=== PATIENT | female | born 1940 | race Caucasian/White ===

== ENCOUNTER → 2016-08-13 | Outpatient (CLI) | payer MEDICARE, OTHER ==
--- NOTE | 2016-08-13 15:05 | REPMRS ---
Patient History The patient states she had a clinical breast exam in 08/13 Patient is postmenopausal. Family history of colorectal cancer in father at age 50 or over and pancreatic cancer in sister at age 50 or over. 2 benign excisional biopsies of the right breast, 1968. Taking unspecified hormones for 6 years. Digital Woman Screen Mammo: August 13, 2016 - Exam #: [id number] Bilateral CC and MLO view(s) were taken. Technologist: Essie Paiz, Technologist Prior study comparison: July 21, 2015, digital woman screen mammo performed at [facility]. July 18, 2014, digital woman screen mammo performed at [facility]. July 17, 2013, digital woman screen mammo performed at [facility]. FINDINGS: There are scattered fibroglandular densities. There has been no change in the appearance of the mammogram from the prior studies. There is a mild amount of scattered fibroglandular density which is fairly symmetric. There is no interval development of dominant mass, architectural distortion, or clustered microcalcification suggestive of malignancy. ASSESSMENT: BI-RADS/ACR category 1 mammogram. Negative. Recommendation Routine screening mammogram in 1 year (for women over age 40). This mammogram was interpreted with the aid of an FDA-approved computer-aided dectection system. Electronically Signed By: Samuel Umana MD 08/13/16 [id number]
== END ==
LOC: M WHC 13:00
PROVIDERS: ATTEND Family Medicine
DX: Z12.31 Encounter for screening mammogram for malignant neoplasm of breast (principal); Z78.0 Asymptomatic menopausal state; Z92.89 Personal history of other medical treatment; Z80.0 Family history of malignant neoplasm of digestive organs
CPT/HCPCS: G0101; G0202

== ENCOUNTER → 2016-08-30 | Outpatient (CLI) | payer MEDICARE, OTHER ==
--- NOTE | 2016-09-01 13:37 | DEXA ---
AP SPINE L1 - L4 1.109 -0.7 1.1 LT FEMUR TOTAL 0.907 -0.8 0.9 RT FEMUR TOTAL 0.959 -0.4 1.3 TOTAL BODY TOTAL OTHER DUAL FEMUR FRAX* ASSESSMENT Risk factors: History of fracture as an adult. 10 year probability of fracture Major osteoporotic fracture 14.1 % Hip fracture 1.9 % COMMENTS: Normal bone densitometry of the spine. Normal bone densitometry of the right hip. There is low bone density of the left hip. The density of the spine has increased 7.4% since the initial exam on 2000. The spine density has decreased 4.9% since the most recent exam on . The density of the left hip has decreased 9.8% since the initial exam on 2000. The density of the left hip has decreased 9.4% since the most recent exam on 06/2009. The density of the right hip has decreased 9.5% since the initial exam on 2000. The density of the right hip has decreased 5.6% since the most recent exam on . FOLLOW-UP: Recommendation for the next bone density exam: 2 years. TOMMIE
== END ==
LOC: M WHC 10:02
PROVIDERS: ATTEND Family Medicine
DX: Z13.820 Encounter for screening for osteoporosis (principal); M85.9 Disorder of bone density and structure, unspecified; M81.0 Age-related osteoporosis without current pathological fracture

== ENCOUNTER → 2017-03-22 | Outpatient (REF) | payer MEDICARE, OTHER ==
[2017-03-22 13:00] LABS: ALBUMIN 3.9 GM/DL (3.2-5.2); ALBUMIN/GLOBULIN RATIO 1.44 (1.00-1.93); ALKALINE PHOSPHATASE 85 U/L (45-117); ALT/SGPT 33 U/L (12-78); ANION GAP 10 MEQ/L (8-16); AST/SGOT 29 U/L (15-37); BILIRUBIN,TOTAL 0.6 MG/DL (0.2-1.0); BLOOD UREA NITROGEN 24 MG/DL (7-18); CALCIUM LEVEL 8.8 MG/DL (8.8-10.2); CARBON DIOXIDE LEVEL 28 MEQ/L (21-32); CHLORIDE LEVEL 102 MEQ/L (98-107); CREATININE FOR GFR 0.87 MG/DL (0.55-1.02); FREE T4 1.06 NG/DL (0.76-1.46); GLOMERULAR FILTRATION RATE > 60.0 (>39); GLUCOSE, FASTING 89 MG/DL (83-110); POTASSIUM SERUM 4.3 MEQ/L (3.5-5.1); SODIUM LEVEL 140 MEQ/L (136-145); TOTAL PROTEIN 6.6 GM/DL (6.4-8.2)
[2017-03-24 00:07] LABS: Lyme Disease IgG/IgM Antibodie <0.91 ISR (0.00-0.90); Lyme Disease IgM Ab Quantitati <0.80 index (0.00-0.79)
== END ==
LOC: M SFHCCLAY 08:17
PROVIDERS: ATTEND Family Medicine
DX: Z20.9 Contact with and (suspected) exposure to unspecified communicable disease (principal); R41.3 Other amnesia; R11.0 Nausea; G44.329 Chronic post-traumatic headache, not intractable; Z23 Encounter for immunization; Z11.59 Encounter for screening for other viral diseases
CPT/HCPCS: 80053; 84439; 84443; 86617; 86780; 90662; G0008; G0463

== ENCOUNTER → 2017-12-08 | Outpatient (CLI) | payer MEDICARE, OTHER | LOC: M CLY 14:46 | DX: M16.11 Unilateral primary osteoarthritis, right hip (principal); M25.551 Pain in right hip | CPT/HCPCS: 72170 ==

== ENCOUNTER → 2018-07-25 | Outpatient (REF) | payer MEDICARE, OTHER ==
[2018-07-25 11:56] LABS: BASO % 1.1 % (0.0-1.0); EOS # 0.3 10^3/uL (0.0-0.50); EOS % 8.1 % (0.0-3.0); HEMATOCRIT 41.1 % (36.0-47.0); HEMOGLOBIN 13.3 g/dl (12.0-15.5); LYMPH % 27.9 % (24.0-44.0); MEAN CORPUSCULAR HEMOGLOBIN 30.6 pg (27.0-33.0); MEAN CORPUSCULAR HGB CONC 32.4 g/dl (32.0-36.5); MEAN CORPUSCULAR VOLUME 94.5 fl (80.0-96.0); MONO # 0.6 10^3/uL (0.0-0.8); MONO % 14.9 % (0.0-5.0); NEUTROPHILS # 1.8 10^3/uL (1.8-7.7); NEUTROPHILS % 47.7 % (36.0-66.0); PLATELET COUNT, AUTOMATED 247 10^3/uL (150-450); RED BLOOD COUNT 4.35 10^6/uL (4.00-5.40); WHITE BLOOD COUNT 3.7 10^3/uL (4.0-10.0)
[2018-07-25 12:12] LABS: DRVV SCREEN 33.4 SEC
[2018-07-25 12:38] LABS: ERYTHROCYTE SEDIMENTATION RATE 4 mm/hr (0-30)
[2018-07-25 12:40] LABS: PTT LUPUS TYPE ANTICOAG SCREEN 0.8 (0-1.2)
[2018-07-25 13:09] LABS: ALT/SGPT 37 U/L (12-78); BILIRUBIN,TOTAL 0.7 MG/DL (0.2-1.0); BLOOD UREA NITROGEN 25 MG/DL (7-18); CALCIUM LEVEL 8.5 MG/DL (8.8-10.2); CARBON DIOXIDE LEVEL 28 MEQ/L (21-32); CHLORIDE LEVEL 105 MEQ/L (98-107); CREATININE FOR GFR 0.86 MG/DL (0.55-1.30); FOLATE 19.7 NG/ML; GLOMERULAR FILTRATION RATE > 60.0 (>39); GLUCOSE, FASTING 77 MG/DL (70-100); POTASSIUM SERUM 4.2 MEQ/L (3.5-5.1); RHEUMATOID FACTOR QUANT < 10.0 IU/ML (<15.0); SODIUM LEVEL 141 MEQ/L (136-145); TOTAL 25(OH) VITAMIN D 26.1 NG/ML (30.0-100.0); TOTAL PROTEIN 6.6 GM/DL (6.4-8.2); VITAMIN B12 LEVEL 621 PG/ML
[2018-07-25 15:38] LABS: HEMOGLOBIN A1c 5.7 %
[2018-07-27 14:37] LABS: ALBUMIN 4.43 GM/DL (3.29-5.55); ALBUMIN % 67.1 % (55.8-66.1); ALPHA-1-GLOBULIN % 4.5 % (2.9-4.9); ALPHA-2-GLOBULINS 0.57 GM/DL (0.42-0.99); ALPHA-2-GLOBULINS % 8.6 % (7.1-11.8); BETA-1-GLOBULINS 0.38 GM/DL (0.28-0.60); BETA-1-GLOBULINS % 5.8 % (4.7-7.2); BETA-2-GLOBULINS 0.32 GM/DL (0.19-0.55); BETA-2-GLOBULINS % 4.9 % (3.2-6.5); GAMMA GLOBULIN % 9.1 % (11.1-18.8)
== END ==
LOC: M LABDRAWC 11:06
PROVIDERS: ATTEND Psychiatry & Neurology Neurology
DX: R41.841 Cognitive communication deficit (principal); R47.01 Aphasia

== ENCOUNTER → 2018-09-28 | Outpatient (REF) | payer MEDICARE, OTHER ==
[2018-10-01 00:06] LABS: Lyme Disease IgG/IgM Antibodie <0.91 ISR (0.00-0.90); Lyme Disease IgM Ab Quantitati <0.80 index (0.00-0.79)
== END ==
LOC: M SFHCCLAY 08:41
PROVIDERS: ATTEND Family Medicine
DX: M79.10 Myalgia, unspecified site (principal)

== ENCOUNTER → 2018-11-15 | Outpatient (REF) | payer MEDICARE, OTHER ==
[2018-11-15 17:24] LABS: ALBUMIN 4.2 GM/DL (3.2-5.2); ALT/SGPT 33 U/L (12-78); BILIRUBIN,TOTAL 0.7 MG/DL (0.2-1.0); BLOOD UREA NITROGEN 20 MG/DL (7-18); CALCIUM LEVEL 9.1 MG/DL (8.8-10.2); CARBON DIOXIDE LEVEL 29 MEQ/L (21-32); CHLORIDE LEVEL 105 MEQ/L (98-107); CHOLESTEROL LEVEL 242 MG/DL (<200); CHOLESTEROL RISK RATIO 2.469 (<5); CREATININE FOR GFR 0.86 MG/DL (0.55-1.30); GLOMERULAR FILTRATION RATE > 60.0 (>39); GLUCOSE, FASTING 89 MG/DL (70-100); HDL CHOLESTEROL 98 MG/DL (>40); LDL CHOLESTEROL 127 MG/DL (<100); NON-HDL-C 144 MG/DL; POTASSIUM SERUM 4.4 MEQ/L (3.5-5.1); SODIUM LEVEL 141 MEQ/L (136-145); TOTAL PROTEIN 7.1 GM/DL (6.4-8.2); TRIGLYCERIDES LEVEL 85 MG/DL (<150)
[2018-11-15 17:36] LABS: HEMATOCRIT 43.2 % (36.0-47.0); HEMOGLOBIN 13.8 g/dl (12.0-15.5); MEAN CORPUSCULAR HEMOGLOBIN 30.4 pg (27.0-33.0); MEAN CORPUSCULAR HGB CONC 31.9 g/dl (32.0-36.5); MEAN CORPUSCULAR VOLUME 95.2 fl (80.0-96.0); PLATELET COUNT, AUTOMATED 262 10^3/uL (150-450); RED BLOOD COUNT 4.54 10^6/uL (4.00-5.40); WHITE BLOOD COUNT 4.3 10^3/uL (4.0-10.0)
[2018-11-15 18:14] LABS: ERYTHROCYTE SEDIMENTATION RATE 3 mm/hr (0-30)
== END ==
LOC: M SFHCCLAY 10:16
PROVIDERS: ATTEND Family Medicine
DX: I63.81 Other cerebral infarction due to occlusion or stenosis of small artery (principal); M50.30 Other cervical disc degeneration, unspecified cervical region; E78.00 Pure hypercholesterolemia, unspecified
CPT/HCPCS: 80053; 80061; 84443; 85027; 85652; G0463

== ENCOUNTER → 2019-07-09 | Outpatient (CLI) | payer MEDICARE, OTHER ==
[~2019-07-09] MED LIST: DULO1CAP5 PO
--- NOTE | 2019-07-09 12:03 | REPMRS ---
Patient History The patient states she has not had a clinical breast exam in over a year. Family history of colorectal cancer at age 50 or over in father, pancreatic cancer at age 50 or over in sister. 2 benign excisional biopsies of the right breast, 1968. Took unspecified hormones for 6 years. Digital Woman Screen Mammo: July 09, 2019 - Exam #: [id number] Bilateral CC and MLO view(s) were taken. Technologist: Yuin Vázquez, Technologist Prior study comparison: September 09, 2017, digital woman screen mammo performed at [facility]. August 13, 2016, digital woman screen mammo performed at [facility]. July 21, 2015, digital woman screen mammo performed at [facility]. FINDINGS: There are scattered fibroglandular densities. There has been no change in the appearance of the mammogram from the prior studies. There is a mild amount of scattered fibroglandular density which is fairly symmetric. There is no interval development of dominant mass, architectural distortion, or grouped microcalcification suggestive of malignancy. 3-D tomosynthesis shows no additional findings. Assessment: BI-RADS/ACR category 1 mammogram. Negative Mammogram. Recommendation Routine screening mammogram of both breasts in 1 year (for women over age 40). This patient's Lifetime Breast Cancer Risk is estimated at 3.0 %. This mammogram was interpreted with the aid of an FDA-approved computer-aided dectection system. Electronically Signed By: Samuel Umana MD 07/09/19 1353
== END ==
LOC: M WHC 09:45
PROVIDERS: ATTEND Family Medicine
DX: Z12.31 Encounter for screening mammogram for malignant neoplasm of breast (principal); M16.0 Bilateral primary osteoarthritis of hip; Z80.0 Family history of malignant neoplasm of digestive organs; Z86.018 Personal history of other benign neoplasm; Z92.29 Personal history of other drug therapy

== ENCOUNTER 2019-10-11 08:09 | Observation (INO) | payer MEDICARE, OTHER ==
[2019-10-11] MEDS ORDERED: ATOR40TA75 PO (08:23)
[2019-10-11] MEDS ORDERED: ASPIRIN 325 MG TAB PO ONE (08:45)
[2019-10-11] MEDS ORDERED: METOCLOPRAMIDE INJ 10MG/2ML VIAL (J2765 PER 1) IV ONE (08:45)
[2019-10-11 08:59] LABS: BASO # 0.1 10^3/uL (0.0-0.2); BASO % 1.7 % (0.0-1.0); EOS # 0.3 10^3/uL (0.0-0.5); EOS % 8.3 % (0.0-3.0); HEMATOCRIT 40.4 % (36.0-47.0); LYMPH % 29.4 % (24.0-44.0); MEAN CORPUSCULAR HEMOGLOBIN 30.7 pg (27.0-33.0); MEAN CORPUSCULAR HGB CONC 32.2 g/dl (32.0-36.5); MEAN CORPUSCULAR VOLUME 95.5 fl (80.0-96.0); MONO # 0.5 10^3/uL (0.0-0.8); MONO % 15.4 % (0.0-5.0); NEUTROPHILS # 1.6 10^3/uL (1.5-8.5); NEUTROPHILS % 44.9 % (36.0-66.0); PLATELET COUNT, AUTOMATED 211 10^3/uL (150-450); RED BLOOD COUNT 4.23 10^6/uL (4.00-5.40); WHITE BLOOD COUNT 3.5 10^3/uL (4.0-10.0)
[2019-10-11] MEDS ORDERED: ACET-683 PO (09:03)
[2019-10-11] MEDS ORDERED: ASPI81TA85 PO (09:03)
[2019-10-11 09:15] LABS: INR 1.11
[2019-10-11 09:27] LABS: ALBUMIN 3.4 GM/DL (3.2-5.2); ALT/SGPT 49 U/L (12-78); BILIRUBIN,TOTAL 0.6 MG/DL (0.2-1.0); BLOOD UREA NITROGEN 26 MG/DL (7-18); CALCIUM LEVEL 8.2 MG/DL (8.8-10.2); CARBON DIOXIDE LEVEL 30 MEQ/L (21-32); CHLORIDE LEVEL 110 MEQ/L (98-107); CK-MB VALUE MASS 4.1 NG/ML (<3.6); CPK CREATINE PHOSPHOKINASE 282 U/L (26-192); CREATININE FOR GFR 0.84 MG/DL (0.55-1.30); GLOMERULAR FILTRATION RATE > 60.0 (>39); GLUCOSE, FASTING 116 MG/DL (70-100); MB/CK RELATIVE INDEX 1.45 (< OR =4); POTASSIUM SERUM 3.9 MEQ/L (3.5-5.1); SODIUM LEVEL 143 MEQ/L (136-145); TOTAL PROTEIN 6.2 GM/DL (6.4-8.2); TROPONIN I < 0.02 NG/ML (< 0.10)
--- NOTE | 2019-10-11 09:59 | REP ---
CHEST, SINGLE VIEW: There is no evidence of acute infiltrate. No pleural effusion is seen. The heart is normal in size. The mediastinal silhouette is unremarkable. The visualized osseous structures are intact. IMPRESSION: No acute pulmonary disease. Electronically Signed by Jay Becker MD 10/11/2019 12:55 P
--- NOTE | 2019-10-11 09:59 | REP ---
CT BRAIN WITHOUT CONTRAST: HISTORY: CVA. Comparison head CT study June 13, 2019. CT FINDINGS: Preliminary digital egg caser radiograph is unremarkable. Bone window settings demonstrate an intact bony calvarium. Visualized paranasal sinuses are clear. Moderate vascular calcification is noted at the skull base. There is mild generalized atrophy. There is no evidence of intracranial hemorrhage. No extra-axial fluid collection, infarction, mass or midline shift is appreciated. There is some mild punctate calcification in the basal ganglia unchanged. IMPRESSION: Vascular calcification and mild diffuse atrophy. No acute intracranial abnormality. Electronically Signed by Elmo Umana MD 10/11/2019 10:13 A
[2019-10-11] MEDS ORDERED: MOM 30ML SUSPENSION UDC PO PRN (11:30)
[2019-10-11] MEDS ORDERED: ACETAMINOPHEN TAB 650MG DOSE (2X325MG) PO PRN (11:30)
[2019-10-11 12:02] VITALS: BP 136/97
--- NOTE | 2019-10-11 13:53 | HPEPDOC ---
[facility] Medical History & Physical Date of Admission October 11, 2019 Date of Service: October 11, 2019 Primary Care Physician: Trace Santiago MD Attending Physician: CHRISTOPH AMATO MD History and Physical CHIEF COMPLAINT: left sided weakness HISTORY OF PRESENT ILLNESS: Fauzia Martinez is a 79 year old female who presented to the emergency room from this morning with left-sided weakness. She states she felt normal last night when she went to bed at 11 PM. When she woke up this morning, around 6:00 AM, she felt complete weakness of her right upper and lower extremity. She states she was unable to walk due to the weakness. She then experienced nausea and was dry heaving her bathroom, but this denies any vomit coming up. She states. EMS was called and brought her to the emergency room. She states her weakness persisted until sometime after she arrived in the emergency room. At the time of my interview with the patient, her symptoms have resolved. She does have a history of a stroke seen on MRI in the past, but she denies ever having any symptoms of a stroke or TIA. She does have a history of difficulty with word finding, which began about a year ago. She states this was progressive in nature and has been stable over the past 6 months. She has been following with neurology for this. She states it is worse when she is under stress. She does not feel that her word finding is any worse today than normally, although she is feeling somewhat stressed. PAST MEDICAL HISTORY: 1. Migraines 2. Osteoarthritis 3. Stroke seen on MRI 4. Cataracts 4. Hyperlipidemia PAST SURGICAL HISTORY: 1. Tonsillectomy 2. Breast fibroadenoma excision. 3. Right thumb surgery. 4. Multiple bilateral foot surgeries 5. Cataract surgery 6. Hysterectomy SOCIAL HISTORY: Former smoker quit 1960s, 1 glass of wine several days a week. Lives at home with disabled and dog. FAMILY HISTORY: Father of bladder/colon cancer. Mother , had heart disease. ALLERGIES: Please see below. REVIEW OF SYSTEMS: CONSTITUTIONAL: Denies fevers, chills, night sweats, fatigue, unexpected change in weight. HEENT: Denies change in vision, change in hearing. CARDIOVASCULAR: Denies chest pain, palpitations, shortness of breath, lightheadedness. RESPIRATORY: Denies dyspnea, cough, wheezing. GASTROINTESTINAL: Positive per HPI. Denies abdominal pain, diarrhea, constipation, blood in stool. GENITOURINARY: Denies dysuria, urinary frequency, urinary urgency. SKIN: Denies rash, lesions. MUSCULOSKELETAL: Endorses chronic joint pain, denies new or changing joint pains. NEUROLOGICAL: Positive per HPI. Denies headache, dizziness. PSYCHIATRIC: Denies change in mood. HOME MEDICATIONS: Please see below. PHYSICAL EXAMINATION: VITAL SIGNS: See below GENERAL: Alert, comfortable, in no acute distress HEENT: Normocephalic, atraumatic, PERRLA, EOMI, sclerae anicteric, moist mucous membranes NECK: Supple, trachea midline, no lymphadenopathy, no JVD CARDIOVASCULAR: Regular rate and rhythm, normal S1 and S2. No murmurs, rubs, or gallops RESPIRATORY: Clear to auscultation bilaterally with equal air entry bilaterally. No wheezing, rhonchi, or rales. ABDOMEN: Soft, nontender, nondistended, bowel sounds present, no masses or hepatosplenomegaly appreciated EXTREMITIES: No cyanosis or edema. Pulses 2+/4 in bilateral upper and lower extremities SKIN: [place], warm, dry NEUROLOGIC: Alert and oriented 3 to person, place and time. Cranial nerves 2-12 grossly intact. No focal deficits appreciated PSYCHIATRIC: Mood and affect appropriate LABORATORY DATA: See below. IMAGING: -Head CT 10/11/2019: Vascular calcification and mild diffuse atrophy. No acute intracranial abnormality. -CXR 10/11/2019: No acute pulmonary disease. MICROBIOLOGY: Please see below. ASSESSMENT: 79 year old female who presented with left-sided weakness admitted for TIA work up and stroke rule out. PLAN: 1. TIA vs stroke - CT head negative. Symptoms resolved. - chronic difficulty with word finding, currently at baseline per patient - ordered MRI brain, MRA head and neck, telemetry - PT/OT/swallow eval - Aspirin 325 mg daily, continue home atorvastatin, recheck lipid panel 2. Hyperlipidemia - continue home statin 3. Osteoarthritis - tylenol prn DVT prophylaxis: sc heparin GI prophylaxis: not currently indicated Disposition: admitted for observation, pending further workup Attending attestation: I evaluated and examined the patient in person; I discussed the care with Resident in detail and agree with the plan above. Vital Signs Vital Signs Date Time Temp Pulse Resp B/P (MAP) Pulse Ox O2 Delivery O2 Flow Rate FiO2 10/11/19 12:02 96.3 63 17 136/97 (110) 98 Room Air Laboratory Data Labs 24H Laboratory Tests 2 10/11/19 08:47: Immature Granulocyte % (Auto) 0.3, Neutrophils (%) (Auto) 44.9, Lymphocytes (%) (Auto) 29.4, Monocytes (%) (Auto) 15.4H, Eosinophils (%) (Auto) 8.3H, Basophils (%) (Auto) 1.7H, Neutrophils # (Auto) 1.6, Lymphocytes # (Auto) 1.0L, Monocytes # (Auto) 0.5, Eosinophils # (Auto) 0.3, Basophils # (Auto) 0.1, Nucleated Red Blood Cells % (auto) 0.0, Prothrombin Time 14.0, Prothromb Time International Ratio 1.11, Activated Partial Thromboplast Time 26.0, Anion Gap 3L, Glomerular Filtration Rate > 60.0, Calcium Level 8.2L, Total Bilirubin 0.6, Aspartate Amino Transf (AST/SGOT) 37, Alanine Aminotransferase (ALT/SGPT) 49, Alkaline Phosphatase 71, Total Creatine Kinase 282H, Creatine Kinase MB 4.1H, Creatine Kinase MB Relative Index 1.45, Troponin I < 0.02, Total Protein 6.2L, Albumin 3.4, Albumin/Globulin Ratio 1.21 CBC/BMP Laboratory Tests 10/11/19 08:47 Home Medications Scheduled Acetaminophen (Acetaminophen) 500 Mg Tablet, 1,000 MG PO DAILY Aspirin (Aspirin) 325 Mg Tablet, 325 MG PO DAILY Atorvastatin Calcium (Atorvastatin Calcium) 40 Mg Tablet, 40 MG PO QPM Allergies Coded Allergies: propoxyphene (Verified Allergy, Unknown, 06/13/19) codeine (Verified Adverse Reaction, Unknown, GI UPSET, 10/11/19) hydrocodone (Verified Adverse Reaction, Unknown, GI UPSET, 10/11/19) tramadol (Verified Adverse Reaction, Unknown, GI UPSET, 10/11/19) A-FIB/CHADSVASC A-FIB History Current/History of A-Fib/PAF?: ZI Ken D.O. October 11, 2019 13:53 CHRISTOPH AMATO MD October 14, 2019 19:35
[2019-10-11 14:00] VITALS: BP 112/62
[2019-10-11] MEDS: HEPARIN SOD (PORCINE) 5000UNITS/ML VIAL (J1644 PER 1000UNITS) SC SCH ×2 (15:36→20:56)
--- NOTE | 2019-10-11 16:45 | REP ---
MR angiography the brain without contrast: History: TIA. Technique: 3-D [id number] MR angiography of the brain is acquired in the usual fashion and maximal intensity projection images were generated in rotational format about the vertical and horizontal axes. In addition, source axial T1-weighted images are viewed in cine mode. MR angiographic findings: The distal vertebral artery confluence appears to be below the bottom of the imaging field of view. It may be that the right distal vertebral artery terminates in the right italic. Left distal vertebral and basilar artery are unremarkable. Basilar artery is a little tortuous but widely patent. The posterior cerebral and superior cerebellar vessels are normal and symmetric. The distal internal carotid arteries are unremarkable. Anterior and middle cerebral arteries appear intact. There is no visible yan aneurysm or arteriovenous malformation. Impression: Unremarkable MR angiography the brain. Electronically Signed by Elmo Uamna MD 10/11/2019 04:36 P
--- NOTE | 2019-10-11 16:51 | REP ---
MR angiography of the carotids without contrast: History: Slurred speech, weakness, confusion. TIA. Findings: The thoracic aorta somewhat tortuous and mildly ectatic. Great vessels are unremarkable. The common carotid arteries are tortuous, particularly the left. There widely patent. Vertebral arteries are patent. The left is dominant. There is no evidence of significant atherosclerotic plaquing in the carotid bifurcations were in either proximal internal carotid artery. There is no evidence of significant narrowing. Impression: Vessel tortuosity seen. No evidence of ICA or vertebral artery narrowing or occlusion. Electronically Signed by Elmo Umana MD 10/11/2019 04:42 P
--- NOTE | 2019-10-11 17:04 | REP ---
MRI BRAIN WITHOUT IV CONTRAST: HISTORY: TIA. Confusion, slurred speech, weakness. COMPARISON: Head CT study, October 11, 2019. TECHNIQUE: Axial and sagittal imaging planes are utilized for T1- and T2-weighted scans. Sequences include spin-echo, fast spin echo, FLAIR, and diffusion weighted sequences. MRI FINDINGS: There is no MR evidence of significant paranasal sinus disease. No intraorbital abnormality is seen. No bony calvarial defect is appreciated. Craniocervical junction and upper cervical cord are unremarkable. There is mild generalized volume loss. There are foci of T2 hyperintensity in the periventricular and subcortical white matter of the supratentorial brain consistent with mild small vessel changes. On diffusion-weighted scans, there is a focus of restricted diffusion in the left cerebellar hemisphere consistent with an acute lacunar infarction. There is subtle low T1 and high T2 signal intensity here on accompanying spin-echo and FLAIR images. No other area of restricted diffusion is appreciated. There is no evidence of intracranial hemorrhage. The exam is otherwise unremarkable. IMPRESSION: Small focus of restricted diffusion in the left cerebellar hemisphere consistent with an acute lacunar infarct in the left cerebellum. No evidence of hemorrhage. Electronically Signed by Elmo Umana MD 10/12/2019 08:35 A
[2019-10-11] MEDS ORDERED: ATORVASTATIN 20 MG TAB PO SCH (21:00)
[2019-10-11 22:00] VITALS: BP 109/59
--- NOTE | 2019-10-11 22:14 | ECGEPIP ---
[facility] - ED Test Date: 2019-10-11 Pat Name: JOSE SOUTH Department: Room: - Gender: Female Assistant Hvac Mechanic: dilma : 1940 Requested By: LAURIE ZARATE Order Number: [id number] Reading MD: Bigg Norton Measurements Intervals [place] Rate: 47 P: 51 WV: 210 QRS: 19 QRSD: 84 T: 11 QT: 484 QTc: 428 Interpretive Statements SINUS BRADYCARDIA WITH FIRST DEGREE AV BLOCK LOW QRS VOLTAGE IN PRECORDIAL LEADS SIMILAR TO 06/13/19 Electronically Signed on 10-11-2019 22:14:24 EDT by Bigg Norton
[2019-10-12] MEDS: HEPARIN SOD (PORCINE) 5000UNITS/ML VIAL (J1644 PER 1000UNITS) SC SCH ×2 (05:15→15:28)
[2019-10-12 06:00] VITALS: BP 109/60
[2019-10-12] MEDS ORDERED: ASPIRIN 325 MG TAB PO ONE (06:00)
[2019-10-12 07:07] LABS: BLOOD UREA NITROGEN 22 MG/DL (7-18); CALCIUM LEVEL 8.2 MG/DL (8.8-10.2); CARBON DIOXIDE LEVEL 29 MEQ/L (21-32); CHLORIDE LEVEL 110 MEQ/L (98-107); CHOLESTEROL LEVEL 150 MG/DL (<200); CHOLESTEROL RISK RATIO 1.829 (<5); GLOMERULAR FILTRATION RATE > 60.0 (>39); GLUCOSE, FASTING 94 MG/DL (70-100); HDL CHOLESTEROL 82 MG/DL (>40); LDL CHOLESTEROL 54 MG/DL (<100); NON-HDL-C 68 MG/DL; SODIUM LEVEL 145 MEQ/L (136-145); TRIGLYCERIDES LEVEL 70 MG/DL (<150)
[2019-10-12] MEDS ORDERED: ASPI-1 PO (10:13)
[2019-10-12 10:30] VITALS: BP_SYST 118; BP_SYST 123; BP_DIAS 53; BP_DIAS 63; BP_DIAS 65
--- NOTE | 2019-10-12 11:28 | DS.PDOC ---
Discharge Summary General Date of Admission October 11, 2019 at 08:10 Date of Discharge 10/12/2019 Primary Care Physician: Trace Santiago MD Attending Physician: CHRISTOPH AMATO MD Discharge Summary PROCEDURES PERFORMED DURING STAY: None. ADMITTING DIAGNOSES: 1. TIA vs stroke 2. Hyperlipidemia 3. Osteoarthritis DISCHARGE DIAGNOSES: 1. Acute ischemic stroke left cerebellum 2. Hyperlipidemia 3. Osteoarthritis COMPLICATIONS/CHIEF COMPLAINT: Transient Ischemic Attack. HISTORY OF PRESENT ILLNESS: Fauzia Martinez is a 79 year old female who presented to the emergency room from this morning with left-sided weakness. She states she felt normal last night when she went to bed at 11 PM. When she woke up this morning, around 6:00 AM, she felt complete weakness of her right upper and lower extremity. She states she was unable to walk due to the weakness. She then experienced nausea and was dry heaving her bathroom, but this denies any vomit coming up. She states. EMS was called and brought her to the emergency room. She states her weakness persisted until sometime after she arrived in the emergency room. At the time of my interview with the patient, her symptoms have resolved. She does have a history of a stroke seen on MRI in the past, but she denies ever having any symptoms of a stroke or TIA. She does have a history of difficulty with word finding, which began about a year ago. She states this was progressive in nature and has been stable over the past 6 months. She has been following with neurology for this. She states it is worse when she is under stress. She does not feel that her word finding is any worse today than normally, although she is feeling somewhat stressed. HOSPITAL COURSE: The patient received 325 mg aspirin while in the emergency department, she was admitted to the hospital and continued on this dose daily as well as her home statin. A lipid panel showed adequate control of her cholesterol levels. A brain MRI revealed a acute lacunar infarct in the left cerebellum. Head and neck MRA were negative. The patient had an echocardiogram in the report is pending. Patient was evaluated by physical therapy, occupational therapy, and speech therapy. She was cleared for discharge home with outpatient speech therapy. She will follow-up with her PCP to review the results of the echocardiogram when available. DISCHARGE MEDICATIONS: Please see below. ALLERGIES: Please see below. PHYSICAL EXAMINATION ON DISCHARGE: VITAL SIGNS: Please see below. GENERAL: Alert, comfortable, in no acute distress HEENT: Normocephalic, atraumatic, PERRLA, EOMI, sclerae anicteric, moist mucous membranes NECK: Supple, trachea midline, no lymphadenopathy, no JVD CARDIOVASCULAR: Regular rate and rhythm, normal S1 and S2. No murmurs, rubs, or gallops RESPIRATORY: Clear to auscultation bilaterally with equal air entry bilaterally. No wheezing, rhonchi, or rales. ABDOMEN: Soft, nontender, nondistended, bowel sounds present, no masses or hep atosplenomegaly appreciated EXTREMITIES: No cyanosis or edema. Pulses 2+/4 in bilateral upper and lower extremities SKIN: [place], warm, dry NEUROLOGIC: Alert and oriented 3 to person, place and time. Cranial nerves 2-12 grossly intact. No focal deficits appreciated PSYCHIATRIC: Mood and affect appropriate LABORATORY DATA: Please see below. IMAGING: -Head CT 10/11/2019: Vascular calcification and mild diffuse atrophy. No acute intracranial abnormality. -CXR 10/11/2019: No acute pulmonary disease. -MRI brain: Small focus of restricted diffusion in the left cerebellar hemisphere consistent with an acute lacunar infarct in the left cerebellum. No evidence of hemorrhage -MRA head: Unremarkable MR angiography the brain -MRA neck: Vessel tortuosity seen. No evidence of ICA or vertebral artery narrowing or occlusion. PROGNOSIS: Fair ACTIVITY: As tolerated DIET: As tolerated DISCHARGE PLAN: Outpatient neurology follow up, outpatient speech therapy DISPOSITION: Home DISCHARGE INSTRUCTIONS: - Follow up with your PCP in 1 week - Follow up with your neurologist in 1-2 weeks - Take medications as prescribed ITEMS TO FOLLOWUP ON ON OUTPATIENT: 1. Acute ischemic stroke, left cerebellum - follow up with Neurology 2. PCP follow up on echocardiogram results DISCHARGE CONDITION: Stable. TIME SPENT ON DISCHARGE: Greater than 35 minutes. Attending attestation: I evaluated and examined the patient in person; I discussed the care with Resident in detail and agree with the plan above. Vital Signs/I&Os Vital Signs Date Time Temp Pulse Resp B/P (MAP) Pulse Ox O2 Delivery O2 Flow Rate FiO2 10/12/19 10:30 63 118/53 (74) 58 123/63 (83) 64 123/65 (84) 10/12/19 06:00 97.7 16 99 Room Air I&O- Last 24 Hours up to 6 AM 10/12/19 06:00 Intake Total 400 ml Output Total 400 ml Balance 0 ml Laboratory Data Labs 24H Laboratory Tests 2 10/12/19 06:19: Anion Gap 6L, Glomerular Filtration Rate > 60.0, Calcium Level 8.2L, Tri glycerides Level 70, Total Cholesterol 150, LDL Cholesterol 54, Non-HDL Cholesterol (LDL + VLDL) 68, Total HDL Cholesterol 82, Cholesterol/HDL Ratio 1.829 CBC/BMP Laboratory Tests 10/12/19 06:19 Discharge Medications Scheduled Acetaminophen (Acetaminophen) 500 Mg Tablet, 1,000 MG PO DAILY, (Reported) Aspirin (Aspirin) 325 Mg Tablet, 325 MG PO DAILY Atorvastatin Calcium (Atorvastatin Calcium) 40 Mg Tablet, 40 MG PO QPM, (Reported) Allergies Coded Allergies: propoxyphene (Verified Allergy, Unknown, 06/13/19) codeine (Verified Adverse Reaction, Unknown, GI UPSET, 10/11/19) hydrocodone (Verified Adverse Reaction, Unknown, GI UPSET, 10/11/19) tramadol (Verified Adverse Reaction, Unknown, GI UPSET, 10/11/19) ZI POWERS D.O. October 12, 2019 11:28 CHRISTOPH AMATO MD October 14, 2019 19:50
[2019-10-12 14:00] VITALS: BP 117/65
--- NOTE | 2019-10-12 14:18 | ECHO ---
DATE OF STUDY: 10/12/2019 DATE OF : 1940 AGE: 79 REASON FOR THE STUDY: CVA. PRIMARY CARE PHYSICIAN: Dr. Charla Stapleton PATIENT LOCATION: Room 4217 2-D MEASUREMENTS: IVS: 1.0 cm LV: 4.7 cm LVPW: 1.0 cm LA: 3.3 cm Aorta: 2.9 cm DOPPLER MEASUREMENTS Peak velocity across the aortic valve: 1.2 m/s Peak velocity across the LVOT: 1.2 m/s Mitral E: 0.6 Mitral A: 1.6 Ratio: 0.8 Maximum tricuspid valve velocity: 2.1 m/s 2-D COMMENTS: 1. Normal left ventricular size, wall thickness, and normal global left ventricular systolic function. The estimated left ventricular systolic ejection fraction is 60-65%. 2. Normal left atrium. The right atrium appeared to be mildly enlarged. The right ventricle also in limited views appeared to be enlarged, but was leo well. 3. There was increased mobility noted at the level of the fossa ovalis in the atrial septum. 4. Normal aortic root. 5. Trace pericardial effusion. 6. Minimally calcified aortic valve with normal leaflet excursion. Normal mitral valve and tricuspid valve. The pulmonic valve and proximal pulmonary artery branches were not well visualized. 7. The inferior vena cava was not well visualized. DOPPLER: It detects mild to moderate aortic regurgitation, trace mitral regurgitation, and trace tricuspid regurgitation. Abnormal relaxation pattern was noted across the mitral valve leaflets as well as the mitral valve annulus consistent with features of grade 1 left ventricular diastolic dysfunction. IMPRESSION: 1. Normal global left ventricular systolic function. There are some features of left ventricular diastolic dysfunction manifested by abnormal relaxation. 2. Aortic valve sclerosis with mild aortic regurgitation. 3. Trace mitral regurgitation. 4. Trace tricuspid regurgitation. 5. Trace pericardial effusion. 6. Not mentioned above, the descending aorta appeared to be mildly enlarged. 7. Bubble study done with normal saline revealed passage of bubbles from the right heart chambers to the left after into the fossa ovalis. This is most likely consistent with at least a patent foramen ovale. The case was discussed with the resident.
[2019-10-13] MEDS ORDERED: ASPIRIN 325 MG TAB PO SCH (09:00)
== END 2019-10-12 18:38 | disposition home or self-care (01) ==
LOC: M ED 08:09 → EDBD 08:09 → M ED INP 08:10 → ENRESERV 10:28 → M MSPAV 12:00
PROVIDERS: ADMIT Internal Medicine; ATTEND Internal Medicine
DX: I63.9 Cerebral infarction, unspecified (principal); E78.49 Other hyperlipidemia; M19.90 Unspecified osteoarthritis, unspecified site; R53.1 Weakness; Z79.82 Long term (current) use of aspirin; Z88.5 Allergy status to narcotic agent; Z87.891 Personal history of nicotine dependence
CPT/HCPCS: 36415; 70450; 70544; 70547; 70551; 71045; 80048; 80053; 80061; 82550; 82553; 84484; 85025; 85610; 85730; 86850; 86900; 86901; 92610; 93005; 93041; 93306; 94760; 96372; 96374; 97161; 97165; 99285; G0378; J1644; J2765

== ENCOUNTER 2019-11-10 05:37 | Inpatient (IN) | payer MEDICARE, OTHER ==
[~2019-11-10] VITALS: Ht 167.6 cm; Wt 59.7 kg
[~2019-11-10 05:37] MED LIST changes: +ACET-683 PO; +ASPI-1 PO; +ASPI81TA85 PO; +ATOR40TA75 PO
[2019-11-10] MEDS ORDERED: CENT1TAB PO (05:48)
[2019-11-10] MEDS ORDERED: POTA10CA32 PO (05:48)
[2019-11-10] MEDS ORDERED: RA N1TAB PO (05:48)
[2019-11-10] MEDS ORDERED: TAGA200T3 PO (05:48)
[2019-11-10] MEDS ORDERED: ASPI81TA26 PO (05:48)
[2019-11-10] MEDS ORDERED: PLAV1TAB2 PO (05:48)
[2019-11-10] MEDS ORDERED: ISOVUE-370 76% 100ML VIAL As Ordered ONE (06:20)
[2019-11-10 06:26] LABS: BASO # 0.1 10^3/uL (0.0-0.2); BASO % 1.4 % (0.0-1.0); EOS # 0.2 10^3/uL (0.0-0.5); EOS % 6.2 % (0.0-3.0); HEMATOCRIT 39.6 % (36.0-47.0); HEMOGLOBIN 12.9 g/dl (12.0-15.5); LYMPH # 1.1 10^3/uL (1.5-5.0); LYMPH % 31.4 % (24.0-44.0); MEAN CORPUSCULAR HEMOGLOBIN 30.8 pg (27.0-33.0); MEAN CORPUSCULAR HGB CONC 32.6 g/dl (32.0-36.5); MEAN CORPUSCULAR VOLUME 94.5 fl (80.0-96.0); MONO # 0.5 10^3/uL (0.0-0.8); MONO % 14.2 % (0.0-5.0); NEUTROPHILS # 1.6 10^3/uL (1.5-8.5); NEUTROPHILS % 46.5 % (36.0-66.0); PLATELET COUNT, AUTOMATED 187 10^3/uL (150-450); RED BLOOD COUNT 4.19 10^6/uL (4.00-5.40); WHITE BLOOD COUNT 3.5 10^3/uL (4.0-10.0)
[2019-11-10 06:32] LABS: CK-MB VALUE MASS 5.7 NG/ML (<3.6); CPK CREATINE PHOSPHOKINASE 292 U/L (26-192); MB/CK RELATIVE INDEX 1.95 (< OR =4); TROPONIN I < 0.02 NG/ML (< 0.10)
[2019-11-10 06:39] LABS: INR 1.06; PROTHROMBIN TIME 13.5 SECONDS (11.8-14.0)
[2019-11-10 06:40] LABS: PARTIAL THROMBOPLASTIN TIME 27.7 SECONDS (25.0-38.4)
--- NOTE | 2019-11-10 07:21 | REPVR ---
PROCEDURE INFORMATION: Exam: CT Head Without Contrast Exam date and time: 11/10/2019 6:13 AM Age: 79 years old Clinical indication: Other: Leg problem; Additional info: CVA - nursing interventions must not delay CT TECHNIQUE: Imaging protocol: Computed tomography of the head without contrast. Radiation optimization: All CT scans at this facility use at least one of these dose optimization techniques: automated exposure control; mA and/or kV adjustment per patient size (includes targeted exams where dose is matched to clinical indication); or iterative reconstruction. COMPARISON: CT Head without contrast 10/11/2019 8:44 AM FINDINGS: Brain: Generalized parenchymal atrophy and evidence of microvascular ischemic disease involving the periventricular and subcortical white matter bilaterally. Interval development of a small lacunar infarct in the left cerebellum. Ventricles: Normal. No ventriculomegaly. Bones/joints: Unremarkable. No acute fracture. Sinuses: Visualized sinuses are unremarkable. No fluid levels. Mastoid air cells: Visualized mastoid air cells are well aerated. Soft tissues: Unremarkable. IMPRESSION: No acute intracranial pathology. Interval development of a small lacunar infarct in the left cerebellum. Electronically signed by: Dominick Morris On 11/10/2019 07:20:58 AM
[2019-11-10] MEDS ORDERED: HM P99TA PO (07:24)
--- NOTE | 2019-11-10 07:24 | REPVR ---
PROCEDURE INFORMATION: Exam: CT Angiography Neck With Contrast Exam date and time: 11/10/2019 6:13 AM Age: 79 years old Clinical indication: Weakness; Patient HX: Leg problem; Additional info: CVA - nursing interventions must not delay CT TECHNIQUE: Imaging protocol: Computed tomography angiography of the neck with intravenous contrast. 3D rendering: MIP and/or 3D reconstructed images were created by the technologist. Radiation optimization: All CT scans at this facility use at least one of these dose optimization techniques: automated exposure control; mA and/or kV adjustment per patient size (includes targeted exams where dose is matched to clinical indication); or iterative reconstruction. Contrast material: ISO; Contrast volume: 100 ml; Contrast route: AC; COMPARISON: MRA CAROTID WITHOUT CONTRAST 10/11/2019 2:08 PM FINDINGS: Right common carotid artery: No stenosis. No dissection or occlusion. Right internal carotid artery: No stenosis of the extracranial segment. No dissection or occlusion. Right external carotid artery: No occlusion or stenosis of the origin. Right vertebral artery: No stenosis. No dissection or occlusion. Left common carotid artery: No stenosis. No dissection or occlusion. Left internal carotid artery: No stenosis of the extracranial segment. No dissection or occlusion. Left external carotid artery: No occlusion or stenosis of the origin. Left vertebral artery: Dominant left vertebral artery. Bones/joints: Multilevel degenerative disc disease and facet hypertrophy. Mild stenosis of the spinal canal at C3-C4. Bilateral neural foraminal stenosis at C3-C4, C4-C5, and C5-C6. Soft tissues: Normal. No significant soft tissue swelling. IMPRESSION: No acute findings. REFERENCES: NASCET CRITERIA. The degree of internal carotid artery stenosis is based on NASCET criteria. Normal is no stenosis. Mild is less than 50% stenosis. Moderate is 50-69% stenosis. Severe is 70% to 99% stenosis. Total occlusion is no detectable patent lumen. Electronically signed by: Dominick Morris On 11/10/2019 07:23:53 AM
--- NOTE | 2019-11-10 07:27 | REPVR ---
PROCEDURE INFORMATION: Exam: CT Angiography Head With Contrast Exam date and time: 11/10/2019 6:13 AM Age: 79 years old Clinical indication: Weakness; Patient HX: Leg weak; Additional info: CVA - nursing interventions must not delay CT TECHNIQUE: Imaging protocol: Computed tomography angiography of the head with intravenous contrast. 3D rendering: MIP and/or 3D reconstructed images were created by the technologist. Radiation optimization: All CT scans at this facility use at least one of these dose optimization techniques: automated exposure control; mA and/or kV adjustment per patient size (includes targeted exams where dose is matched to clinical indication); or iterative reconstruction. Contrast material: ISO; Contrast volume: 100 ml; Contrast route: AC; COMPARISON: MRA BRAIN W/O CONTRAST 10/11/2019 2:31 PM FINDINGS: Anterior cerebral arteries: Hypoplastic right A1 segment with patent anterior communicating artery. Right internal carotid artery: Intracranial segment is patent with no significant stenosis or occlusion. No aneurysm. Right middle cerebral artery: No occlusion or significant stenosis. No aneurysm. Right posterior cerebral artery: origin of the right posterior cerebral artery. Right vertebral artery: No occlusion or significant stenosis. No aneurysm. Left internal carotid artery: Intracranial segment is patent with no significant stenosis or occlusion. No aneurysm. Left middle cerebral artery: No occlusion or significant stenosis. No aneurysm. Left posterior cerebral artery: origin of the left posterior cerebral artery. Left vertebral artery: No occlusion or significant stenosis. No aneurysm. Basilar artery: No occlusion or significant stenosis. No aneurysm. IMPRESSION: No acute findings. Electronically signed by: Dominick Morris On 11/10/2019 07:27:23 AM
[2019-11-10] MEDS ORDERED: CLOPIDOGREL 75 MG TAB PO ONE (07:45)
[2019-11-10 08:05] LABS: CHOLESTEROL LEVEL 158 MG/DL (<200); CHOLESTEROL RISK RATIO 2.078 (<5); HDL CHOLESTEROL 76 MG/DL (>40); LDL CHOLESTEROL 70 MG/DL (<100); NON-HDL-C 82 MG/DL; RHEUMATOID FACTOR QUANT < 10.0 IU/ML (<15.0); TRIGLYCERIDES LEVEL 58 MG/DL (<150)
[2019-11-10 08:29] LABS: ERYTHROCYTE SEDIMENTATION RATE 2 mm/hr (0-30)
[2019-11-10] MEDS ORDERED: ACETAMINOPHEN 500 MG TAB PO SCH (09:00)
--- NOTE | 2019-11-10 09:12 | REPVR ---
PROCEDURE INFORMATION: Exam: MR Head Without Contrast Exam date and time: 11/10/2019 8:39 AM Age: 79 years old Clinical indication: Altered mental status/memory loss and dizziness and weakness, extremity; Patient HX: PT states increased confusion and memory loss, difficulty with speaking or say what she wants, a little headache anterior, increase weakness on left side; Additional info: Dizzyess, left leg wkness TECHNIQUE: Imaging protocol: MR of the head without contrast. COMPARISON: MRI-Brain without Contrast 10/11/2019 2:31 PM FINDINGS: Brain: Chronic lacunar infarct in the left cerebellum. Generalized parenchymal atrophy and evidence of microvascular ischemic disease involving the periventricular and subcortical white matter bilaterally. Ventricles: Normal. No ventriculomegaly. Bones/joints: Unremarkable. Sinuses: Normal as visualized. No acute sinusitis. Mastoid air cells: Normal as visualized. No mastoid effusion. Orbits: Unremarkable. Soft tissues: Unremarkable. IMPRESSION: No acute intracranial pathology. Electronically signed by: Dominick Morris On 11/10/2019 09:12:19 AM
[2019-11-10 09:40] VITALS: BP 132/66
[2019-11-10] MEDS: ATORVASTATIN 20 MG TAB PO SCH (09:54)
[2019-11-10] MEDS: ASPIRIN 81 MG ENTERIC TAB PO SCH (09:54)
[2019-11-10] MEDS: OMEPRAZOLE 20 MG CAP PO SCH (09:54)
[2019-11-10] MEDS: MULTIVITAMINS/MINERALS THERAP 1 TAB PO SCH (09:54)
[2019-11-10] MEDS: ENOXAPARIN 30MG/0.3ML SYRINGE (J1650 PER 10MG) SC SCH (09:54)
[2019-11-10 10:13] LABS: INR 1.02; PROTHROMBIN TIME 13.1 SECONDS (11.8-14.0)
[2019-11-10 10:14] LABS: PARTIAL THROMBOPLASTIN TIME 28.8 SECONDS (25.0-38.4)
[2019-11-10] MEDS ORDERED: ONDANSETRON 4MG/2ML VIAL IV PRN (10:15)
[2019-11-10 10:17] LABS: D-DIMER QUANT 344.29 ng/ml (<500)
--- NOTE | 2019-11-10 10:29 | HPE ---
DATE OF ADMISSION: 11/10/2019 CHIEF COMPLAINT: Dizziness, left-sided weakness. 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 The patient had had a left leg weakness since September after her stroke. She had been feeling increasingly weak and got out of bed and was getting into bed last night. She was all crunched up and went to the bathroom three times into the night. The third time that she went, as she was coming back to the bedroom, she felt slightly lightheaded, felt that everything was swirling around her, felt a little queasy, and sleepy. She sat on her bed, but things were swirling around. She felt that something was wrong and closed her eyes but was unable to have the symptoms go away. The patient woke up her , who then called his registered nurse (RN). This was all occurring around 4:30. She has not been on any new medication and has been compliant with her aspirin and Plavix. No hypercoagulable workup was done during the previous admission. They did check for serology and immunology and was negative for rheumatoid factor. Antinuclear antibody (OSCAR) screen was negative. C-ANCA and P-ANCA and SS-A and B negative. Lupus for anti-double stranded deoxyribonucleic acid (DNA) were both negative. Lyme disease screen also negative at that time. CT of the head showed no acute hemorrhage. Interval development of a small lacunar infarct in the left cerebellum. I was asked to admit the patient for recurrent cerebrovascular accident (CVA). CTA shows no acute findings. The patient otherwise denies fever or chill, weight gain, weight loss, chest pain, pressure, or tightness, shortness of breath, nausea, vomiting, diarrhea, abdominal pain, dysuria, urgency, frequency. She continues to complain of left-sided leg weakness but ambulated well. No expressive or receptive aphasia. No vomiting. No weight gain or weight loss. PAST MEDICAL HISTORY: Left cerebellar CVA in September 2019, patent foramen ovale in September 2019 - has not been sent for closure, migraines, osteoarthritis, cataract, hyperlipidemia. PAST SURGICAL HISTORY: Hysterectomy, cataract surgery, tonsillectomy, breast fibroadenoma excision, right thumb surgery, multiple bilateral foot surgeries. HOME MEDICATIONS: - aspirin 81 mg daily - Plavix 75 mg daily - Tagamet 200 daily - magnesium 250 daily - potassium 595 mg daily - acetaminophen 1 gram daily - atorvastatin 40 mg daily - multivitamin one tablet daily ALLERGIES: To CODEINE, HYDROCODONE, TRAMADOL, PROPOXYPHENE. SOCIAL HISTORY: Previously smoked, quit in 1959. Drinks wine once a week. Lives at home with her disabled and dogs. FAMILY HISTORY: Mother coronary artery disease (CAD), father bladder and colon cancer. REVIEW OF SYSTEMS: Per history of present illness (HPI); 12-point system otherwise negative. PHYSICAL EXAMINATION: Temperature 95.9, pulse 52, respiratory rate 18, blood pressure 127/66, 99% on room air. Generally, the patient is awake, alert, oriented times three, answering questions appropriately. Speech is fluent. Tongue is midline. Face is symmetric. The patient has no use of respiratory accessory muscles. Lungs are clear to auscultation. No wheezing, rales, or rhonchi. Heart: S1, S2, sinus rhythm. No murmurs, rubs, or gallops Abdomen: Is soft, nontender, nondistended. Positive bowel sounds. Extremities: No cyanosis, clubbing, or any pitting edema Neurologically, motor function is 4/5 in left lower extremity, 5/5 on the right lower extremity. Bilateral upper extremities, the patient has decreased sensation of left upper part of the face. Otherwise, no dysmetria on cuvfhc-mm-qiol testing. Negative pronator drift. LABORATORY DATA: White count 3.5, hemoglobin 12.9, hematocrit 39, platelet count 187, 46% neutrophils, total CK 292, troponin less than 0.09, triglyceride 58, LDL 70, non-HDL 82. INR 1.06, PT 13.5. Rheumatoid factor less than 10. Sodium 142, potassium 4, chloride 104, bicarbonate 26, BUN 24, creatinine 0.7, ionized calcium 4.6. INR of 1, PTT of 12.5 IMAGING STUDIES: CTA of the neck 11/10/2019: No acute finding. CT of the head: Interval development of a small lacunar infarct in the left cerebellum. No acute intracranial pathology. ASSESSMENT AND PLAN: This is a 79-year-old female on aspirin and Plavix from prior left cerebellar cerebrovascular accident (CVA) in September 2019 with a patent foramen ovale that has not been closed yet, presents with left-sided weakness and dizziness at 4:30 in the morning. CURRENT ISSUES: 1. Dizziness and persistent left-sided weakness. Rule out current CVA. The patient had a history of acute ischemic stroke in left cerebellum and was taking aspirin and Plavix as outpatient. Awaiting referral to [facility] for closure of a patent foramen ovale. Per Dr. Butler, cardiology nurse correspondence renew clerk today, the patient should have a repeat CT of the head without contrast after 72 hours, which will be on Tuesday, to rule out hemorrhage. If negative, the patient should be changed to a stronger anticoagulation, Eliquis, twice a day and referred as outpatient for closure of patent foramen ovale. We will continue to check for hypercoagulable state. The patient will need to have factor V Leiden, prothrombin gene mutation. Check protein C and S as outpatient. Neurology followup for recurrent cerebrovascular accident (CVA). The patient will need a hematology workup as outpatient and followup to determine source of clots. The patient says that she has been compliant with cancer screenings. Does not have any other risk factors for malignancy as a cause of hypercoagulable state. Check orthostatic hypotension. 2. Hyperlipidemia. Currently, on statins. 3. Osteoarthritis, stable, on multivitamin. No acute issues. 4. History of migraines. 5. Deep venous thrombosis (DVT) prophylaxis with Lovenox subcutaneous. MTDD
[2019-11-10] MEDS ORDERED: PROMETHAZINE INJ 25 MG/ML VIAL (J2550) IV PRN (12:00)
[2019-11-10] MEDS ORDERED: PROMETHAZINE INJ 25 MG/ML VIAL (J2550) IV ONE (12:15)
--- NOTE | 2019-11-10 15:52 | REP ---
Single view chest: 11/10/2019. Indication: Stroke. Comparison: 10/11/2019. Findings: There is no pulmonary consolidation. There is no pleural effusion or pneumothorax. Chronic pleural and parenchymal changes as well as borderline cardiomegaly are redemonstrated. Impression: Clear lungs. Electronically Signed by Rafi Wright DO 11/10/2019 03:43 P
[2019-11-10 22:00] VITALS: BP 102/57
[2019-11-11] MEDS ORDERED: ACETAMINOPHEN 500 MG TAB PO PRN (04:00)
[2019-11-11] MEDS ORDERED: ACETAMINOPHEN TAB 650MG DOSE (2X325MG) PO PRN (04:00)
[2019-11-11 06:00] VITALS: BP 103/56
[2019-11-11 06:11] LABS: HEMATOCRIT 37.6 % (36.0-47.0); MEAN CORPUSCULAR HEMOGLOBIN 30.2 pg (27.0-33.0); MEAN CORPUSCULAR HGB CONC 31.9 g/dl (32.0-36.5); MEAN CORPUSCULAR VOLUME 94.7 fl (80.0-96.0); PLATELET COUNT, AUTOMATED 205 10^3/uL (150-450); RED BLOOD COUNT 3.97 10^6/uL (4.00-5.40)
[2019-11-11 06:36] LABS: BLOOD UREA NITROGEN 17 MG/DL (7-18); CALCIUM LEVEL 8.6 MG/DL (8.8-10.2); CARBON DIOXIDE LEVEL 29 MEQ/L (21-32); CHLORIDE LEVEL 108 MEQ/L (98-107); CREATININE FOR GFR 0.81 MG/DL (0.55-1.30); GLOMERULAR FILTRATION RATE > 60.0 (>39); GLUCOSE, FASTING 87 MG/DL (70-100); POTASSIUM SERUM 3.8 MEQ/L (3.5-5.1); SODIUM LEVEL 141 MEQ/L (136-145)
[2019-11-11] MEDS: ENOXAPARIN 30MG/0.3ML SYRINGE (J1650 PER 10MG) SC SCH (09:23)
[2019-11-11] MEDS: ASPIRIN 81 MG ENTERIC TAB PO SCH (09:23)
[2019-11-11] MEDS: MULTIVITAMINS/MINERALS THERAP 1 TAB PO SCH (09:23)
[2019-11-11] MEDS: ATORVASTATIN 20 MG TAB PO SCH (09:23)
[2019-11-11] MEDS: OMEPRAZOLE 20 MG CAP PO SCH (09:23)
[2019-11-11 14:00] VITALS: BP 112/80
--- NOTE | 2019-11-11 15:59 | ECGEPIP ---
[facility] - ED Test Date: 2019-11-10 Pat Name: JOSE SOUTH Department: Room: [place] [address] Gender: Female Supervisor [employer]: alice : [id number] Requested By: Lisa Benoit Order Number: [id number] Reading MD: Minerva Will Measurements Intervals [place] Rate: 50 P: 62 TX: 222 QRS: 37 QRSD: 95 T: 43 QT: 491 QTc: 449 Interpretive Statements SINUS BRADYCARDIA WITH FIRST DEGREE AV BLOCK LOW VOLTAGE LIMB SIMIALR 10/11/19 Electronically Signed on 11-11-2019 15:59:04 EDT by Minerva Will
[2019-11-11] MEDS ORDERED: CLOPIDOGREL 75 MG TAB PO SCH (21:00)
[2019-11-11 22:00] VITALS: BP 118/70
[2019-11-12 05:41] LABS: HEMATOCRIT 37.8 % (36.0-47.0); HEMOGLOBIN 12.3 g/dl (12.0-15.5); MEAN CORPUSCULAR HEMOGLOBIN 30.5 pg (27.0-33.0); MEAN CORPUSCULAR HGB CONC 32.5 g/dl (32.0-36.5); MEAN CORPUSCULAR VOLUME 93.8 fl (80.0-96.0); PLATELET COUNT, AUTOMATED 205 10^3/uL (150-450); RED BLOOD COUNT 4.03 10^6/uL (4.00-5.40)
[2019-11-12 06:00] VITALS: BP 104/64
[2019-11-12 06:13] LABS: BLOOD UREA NITROGEN 24 MG/DL (7-18); CALCIUM LEVEL 8.6 MG/DL (8.8-10.2); CARBON DIOXIDE LEVEL 28 MEQ/L (21-32); CHLORIDE LEVEL 109 MEQ/L (98-107); CREATININE FOR GFR 0.78 MG/DL (0.55-1.30); GLOMERULAR FILTRATION RATE > 60.0 (>39); GLUCOSE, FASTING 84 MG/DL (70-100); SODIUM LEVEL 143 MEQ/L (136-145)
[2019-11-12] MEDS ORDERED: APIXABAN 5 MG TAB (ELIQUIS) PO SCH (09:00)
[2019-11-12] MEDS ORDERED: ASPIRIN 81 MG ENTERIC TAB PO SCH (09:00)
[2019-11-12] MEDS ORDERED: CLOPIDOGREL 75 MG TAB PO SCH (09:00)
[2019-11-12] MEDS: ATORVASTATIN 20 MG TAB PO SCH (09:38)
[2019-11-12] MEDS: ASPIRIN 81 MG ENTERIC TAB PO SCH (09:38)
[2019-11-12] MEDS: ENOXAPARIN 30MG/0.3ML SYRINGE (J1650 PER 10MG) SC SCH (09:38)
[2019-11-12] MEDS: MULTIVITAMINS/MINERALS THERAP 1 TAB PO SCH (09:38)
[2019-11-12] MEDS: OMEPRAZOLE 20 MG CAP PO SCH (09:38)
--- NOTE | 2019-11-12 12:26 | REP ---
CT BRAIN WITHOUT CONTRAST: HISTORY: Left-sided weakness. Comparison head CT studies are reviewed from October 11, 2019, June 13, 2019, and November 10, 2019. Comparison MRI study November 10, 2019. FINDINGS: Preliminary digital air brake man radiograph is unremarkable. Bone window settings demonstrate an intact bony calvarium. There is vascular calcification again noted at the skull base. Visualized paranasal sinuses are clear. No intraorbital abnormality is seen. There is minimal generalized volume loss. The previously identified left superior cerebellar lacunar infarct is again seen unchanged from most recent prior study of November 10, 2019. There is no evidence of intracranial hemorrhage. No new infarct is appreciated. No extra-axial fluid collection or mass is seen. IMPRESSION: Vascular calcification, mild generalized volume loss, lacunar infarct in the left cerebellar hemisphere again noted unchanged. No acute intracranial abnormality seen. Electronically Signed by Elmo Umana MD 11/12/2019 02:58 P
[2019-11-13 16:17] LABS: ANTINUCLEAR ANTIBODIES DIRECT Negative (Negative)
--- NOTE | 2019-11-13 18:19 | IPN ---
DATE: 11/11/2019 Yesterday, the patient suffered from some acute delirium which resolved this morning. She says that since her stroke in September 2019 she has been increasingly forgetful at times and would have episodes where she forgot that she was speaking with someone or had already spoken with them with transient global amnesia. CT of the head, MRI of the brain shows chronic changes. No signs of any infection. Urinalysis (UA) was negative. No fever or chills. The patient denies any upper or lower extremity paresthesias. Continues to have left-sided leg weakness but able to ambulate without assistance. She continues to have decreased sensation in the left upper part of her face which is unchanged from home. Temperature 98, pulse 57, respiratory rate 17, blood pressure is 103/56, 96% on room air. GENERAL: She is awake, alert and oriented to person, place and time. Her face is symmetric. Tongue is midline. Speech is fluent. No expressive or receptive aphasia. No use of respiratory muscles. Anicteric. No jaundice. No pallor. No jugular venous distention (JVD), thyromegaly, or cervical lymphadenopathy. Lungs are clear to auscultation. No wheezing or rales. HEART: S1, S2, sinus bradycardia. No murmurs, rubs, or gallops. Abdomen is soft, nontender, nondistended. Positive bowel sounds. EXTREMITIES: No clubbing, cyanosis, or pitting edema. NEUROLOGIC: Awake, alert and oriented to person, place and time. Face is symmetric. Tongue is midline. No dysmetria on kekygt-jv-dzat testing. Motor function is 5/5 times four extremities. Gait was not tested. No pronator drift. LABORATORY DATA: White count 5, hemoglobin 12, hematocrit 37, platelet count 205. Lipid panel was normal. Sodium 141, potassium 3.8, chloride 108, bicarbonate 29, BUN 17, creatinine 0.81, glucose of 87. IMAGING STUDIES: MRI of the brain 11/10/2019: Chronic lacunar infarct, left cerebellum. No acute intracranial pathology. CT head 11/10/2019: Generalized atrophy, interval development of small lacunar infarct in left cerebellum. ASSESSMENT AND PLAN: This is a 79-year-old female with history of left cerebellar cerebrovascular accident (CVA) in September 2019, found to have patent foramen ovale on echocardiogram with bubble study, ready by. Dr. Chester Prabhakar, discharged home on aspirin and Plavix, had not had a chance to have closure of the patent foramen ovale (PFA) as outpatient and has had left leg weakness at home, presented to the emergency room with complaints of feeling dizzy with a slight gait abnormality and episodes of amnesia at home where she would forget conversations, had not yet seen her neurologist as outpatient and was compliant with her aspirin and Plavix. The patient woke up at around 04:30 after going to the bathroom when she felt very dizzy with gait abnormality. At which point, she called out to her who called his nurse and she was brought into the emergency room (ER). The patient had resolution of symptoms on arrival. Per Dr. Lisa Becker CT head, CT angiogram brain, MRI all negative for any acute CVA. CURRENT ISSUES: 1. Transient ischemic attack (TIA) in the setting of previous cerebrovascular accident (CVA), left cerebellum in September 2019 with a patent foramen ovale. Per Dr. Butler, gardening supervisor on-call, repeat CT angiogram of the head should be performed after 72 hours of initial presentation. If negative for a hemorrhage, the patient may be placed on Eliquis renally dosed twice a day. Outpatient followup with Dr. Prabhakar for closure of the patent foramen ovale. Coagulation workup as outpatient. 2. Hyperlipidemia. Continue on statin. 3. Osteoarthritis, on multivitamin. 4. Migraines. Followup as outpatient. DISPOSITION: Await EEG, CT angiogram head. If negative, may start on Eliquis. Await physical therapy (PT) clearance.
--- NOTE | 2019-11-13 19:22 | DSES ---
DATE OF ADMISSION: 11/10/2019 DATE OF DISCHARGE: 11/12/2019 On 11/12/2019, patient was transferred to [facility] in [place] for closure of patent foramen ovale. Accepting physician is Dr. Artem Judd. PRIMARY DISCHARGE DIAGNOSES: 1. Transient ischemic attack with recent history of left-sided cerebellar cerebrovascular accident, patent foramen ovale. 2. Transient global amnesia. 3. Acute delirium. 4. Osteoarthritis. 5. Cataracts. 6. Hyperlipidemia. DISCHARGE MEDICATIONS: - aspirin 81 mg daily - Plavix 75 mg daily - Tylenol 650 at bedtime as needed - multivitamin one tablet daily - potassium 595 mg daily - Tagamet 200 mg daily - atorvastatin 40 mg daily - Tylenol 1 gram daily - magnesium 250 daily HOSPITAL COURSE: This is a 79-year-old female initially admitted 10/11/2019 with complaints of left-sided weakness, evaluated with MRI of the brain, which showed a left cerebellar cerebrovascular accident (CVA) with an acute lacunar infarct in the left cerebellum with no evidence of hemorrhage. Echocardiogram on 10/12/2019, read by Dr. Chester Prabhakar, showed bubble study with agitated normal saline. Revealed rapid passage of bubbles from right heart chamber to the left, across the fossa ovalis, consistent with at least a patent foramen ovale. Normal ejection fraction of 60%-65%. Mild to moderate aortic regurgitation. Trace mitral regurgitation and trace tricuspid regurgitation and grade 1 left ventricular diastolic dysfunction. Patient was subsequently discharged home on aspirin and Plavix with outpatient followup per rn clinical resource for referral for closure for patent foramen ovale. Patient then presented to the emergency room on 11/10/2019 with complaints of worsening left leg weakness, dizziness, lightheadedness while she was going back to her room from the bathroom, occurring at 4:30 in the morning. Patient at that time told her , and they subsequently came into the emergency room. CT of the head showed no acute hemorrhage. There was MRI of the brain, which showed no acute CVA. Patient had an episode of delirium and transient global amnesia. Could not remember her episode of delirium with the nursing, when she said she was gardening and looking for her sister in the hospital, which resolved without incident after a few hours. Patient was not given any medications or sedatives prior to this episode. Her motor function was 4/5 in the left lower extremity, 5/5 in the right extremity, and gait was normal. She had a symmetric face and no dysmetria on qfuoyl-bm-gogz testing. Complete blood count (CBC) and metabolic panel were all normal. Hypercoagulable workup was sent per Dr. Butler, who was the rn clinical resource telephone solicitor on Tuesday. He recommended repeat CT of the head after 72 hours. Of negative, discontinue aspirin and Plavix and start on Eliquis. Patient was kept on telemetry but had sinus rhythm throughout her entire admission. After she was not orthostatic, patient's rn clinical resource was contacted about discharge plans and recommendations to change to Eliquis. He then recommended that patient be evaluated by thoracic surgery due to recurrent transient ischemic attacks (TIA) during this admission. DISCHARGE PHYSICAL EXAMINATION: Temperature 98.4, pulse 59, respiratory rate 16, blood pressure 104/64, 95% on room air. GENERAL: Patient is awake, alert, oriented to person, place, and time. Face is symmetric. Tongue is midline. No facial asymmetry. No dysmetria on toeqir-zi-jczi testing. Left lower extremity has 4/5 motor strength. Bilateral upper extremities and right lower extremity 5/5 strength. No pronator drift. LUNGS: Clear to auscultation. No wheezes, rales, or rhonchi. HEART: S1, S2, sinus rhythm. ABDOMEN: Soft, nontender, nondistended. Positive bowel sounds. EXTREMITIES: No cyanosis, clubbing, or pitting edema. LABORATORY DATA: White count 6, hemoglobin 12, hematocrit 37, platelet count 205. Sodium 143, potassium 4, chloride 100, bicarbonate 28, BUN 24, creatinine 0.78, glucose 84. Total CK 292, MB fraction 5.7. Troponin less than 0.02. Triglycerides 58, total cholesterol 158, LDL 70, non-HDL 82. Homocystine is pending. Rheumatoid factor less than 10. OSCAR is pending. Factor II mutation pending. IMAGING STUDIES: MRI of the brain 11/10/2019: No acute intracranial pathology. Chronic lacunar infarct, left cerebellum, generalized parenchymal atrophy, and evidence of microvascular ischemic disease involving the paraventricular and subcortical white matter bilaterally. CT of the head 11/12/2019: No acute intracranial abnormality. Vascular calcification. Mild generalized swelling. Left lacunar infarct in the left cerebellar hemisphere again noted, unchanged. Chest x-ray 11/10/2019: Clear lungs. Microbiology: Respiratory panel, COVID-19 negative. TIME SPENT ON DISCHARGE: 30 minutes. MTDD
== END 2019-11-12 16:08 | disposition short-term general hospital (02) | DRG 69 ==
LOC: EDBD 05:37 → M ED 05:37 → M ED INP 07:40 → ENRESERV 07:52 → M MSPAV 09:40
PROVIDERS: ADMIT General Practice; ATTEND General Practice
DX: G45.9 Transient cerebral ischemic attack, unspecified (principal); Q21.1 Atrial septal defect; I69.354 Hemiplegia and hemiparesis following cerebral infarction affecting left non-dominant side; G43.909 Migraine, unspecified, not intractable, without status migrainosus; M19.90 Unspecified osteoarthritis, unspecified site; E78.5 Hyperlipidemia, unspecified; Z98.49 Cataract extraction status, unspecified eye; Z79.02 Long term (current) use of antithrombotics/antiplatelets; Z79.82 Long term (current) use of aspirin; Z79.899 Other long term (current) drug therapy; Z88.5 Allergy status to narcotic agent; Z88.8 Allergy status to other drugs, medicaments and biological substances; Z87.891 Personal history of nicotine dependence; I69.311 Memory deficit following cerebral infarction; R26.89 Other abnormalities of gait and mobility; G45.4 Transient global amnesia; R41.0 Disorientation, unspecified; Z11.59 Encounter for screening for other viral diseases

== ENCOUNTER 2020-01-09 13:33 | Emergency (ER) | payer MEDICARE, OTHER ==
[~2020-01-09 13:33] MED LIST changes: +ASPI81TA26 PO; -ASPI81TA85 PO; +ASPI81TA86 PO; +CENT1TAB PO; +HM P99TA PO; +PLAV1TAB2 PO; +POTA10CA32 PO; +RA N1TAB PO; +TAGA200T3 PO
== END 2020-01-09 15:08 | disposition home or self-care (01) ==
LOC: M ED 13:33
DX: S09.90XA Unspecified injury of head, initial encounter (principal); R91.1 Solitary pulmonary nodule; W01.198A Fall on same level from slipping, tripping and stumbling with subsequent striking against other object, initial encounter; Y92.512 Supermarket, store or market as the place of occurrence of the external cause; M25.531 Pain in right wrist; M25.511 Pain in right shoulder; I10 Essential (primary) hypertension; Z87.891 Personal history of nicotine dependence; Z86.73 Personal history of transient ischemic attack (TIA), and cerebral infarction without residual deficits; Z79.899 Other long term (current) drug therapy; Z79.01 Long term (current) use of anticoagulants; Z79.82 Long term (current) use of aspirin

== ENCOUNTER → 2020-03-13 | Outpatient (REF) | payer MEDICARE, OTHER ==
[2020-03-13 12:41] LABS: HEMATOCRIT 42.2 % (36.0-47.0); HEMOGLOBIN 13.2 g/dl (12.0-15.5); MEAN CORPUSCULAR HEMOGLOBIN 29.7 pg (27.0-33.0); MEAN CORPUSCULAR HGB CONC 31.3 g/dl (32.0-36.5); MEAN CORPUSCULAR VOLUME 94.8 fl (80.0-96.0); PLATELET COUNT, AUTOMATED 218 10^3/uL (150-450); RED BLOOD COUNT 4.45 10^6/uL (4.00-5.40); WHITE BLOOD COUNT 3.7 10^3/uL (4.0-10.0)
[2020-03-13 13:10] LABS: ALBUMIN 3.9 GM/DL (3.2-5.2); ALT/SGPT 30 U/L (12-78); BILIRUBIN,TOTAL 0.6 MG/DL (0.2-1.0); BLOOD UREA NITROGEN 24 MG/DL (7-18); CALCIUM LEVEL 8.9 MG/DL (8.8-10.2); CARBON DIOXIDE LEVEL 31 MEQ/L (21-32); CHLORIDE LEVEL 106 MEQ/L (98-107); CHOLESTEROL LEVEL 165 MG/DL (<200); CHOLESTEROL RISK RATIO 1.918 (<5); CREATININE FOR GFR 0.94 MG/DL (0.55-1.30); GLOMERULAR FILTRATION RATE > 60.0 (>39); GLUCOSE, FASTING 86 MG/DL (70-100); HDL CHOLESTEROL 86 MG/DL (>40); LDL CHOLESTEROL 63 MG/DL (<100); NON-HDL-C 79 MG/DL; SODIUM LEVEL 141 MEQ/L (136-145); TOTAL PROTEIN 6.5 GM/DL (6.4-8.2); TRIGLYCERIDES LEVEL 79 MG/DL (<150)
== END ==
LOC: M SFHCCLAY 08:17
PROVIDERS: ATTEND Family Medicine
DX: E78.00 Pure hypercholesterolemia, unspecified (principal); R48.8 Other symbolic dysfunctions; I63.9 Cerebral infarction, unspecified

== ENCOUNTER → 2020-05-02 | Outpatient (REF) | payer MEDICARE, OTHER ==
[2020-05-02 17:03] LABS: THYROID STIMULATING HORMONE 1.91 uIU/ML (0.358-3.740)
== END ==
LOC: M SFHCCLAY 12:06
PROVIDERS: ATTEND Family Medicine
DX: R41.3 Other amnesia (principal)
CPT/HCPCS: 82607; 84443; G0463

== ENCOUNTER → 2020-07-09 | Outpatient (CLI) | payer MEDICARE, OTHER ==
--- NOTE | 2020-07-09 14:39 | REPMRS ---
Patient History The patient states she has not had a clinical breast exam in over a year. Family history of colorectal cancer at age 50 or over in father, pancreatic cancer at age 50 or over in sister. 2 benign excisional biopsies of the right breast, 1968. Took unspecified hormones for 6 years. Diagnostic Bilateral Mammo: July 09, 2020 - Exam #: [id number] Bilateral CC and MLO view(s) were taken. Technologist: Yuni Vázquez, Technologist Prior study comparison: July 09, 2019, bilateral digital woman screen mammo performed at [facility] [place]. September 09, 2017, digital woman screen mammo performed at [facility]. August 13, 2016, digital woman screen mammo performed at [facility]. FINDINGS: There are scattered fibroglandular densities. The Volpara volumetric breast density category is:B. There has been no change in the appearance of the mammogram from the prior studies. There is a mild amount of scattered fibroglandular density which is fairly symmetric. There is no interval development of dominant mass, architectural distortion, or grouped microcalcification suggestive of malignancy. 3-D tomosynthesis shows no additional findings. Assessment: BI-RADS/ACR category 1 mammogram. Negative Mammogram. Recommendation Routine screening mammogram of both breasts in 1 year (for women over age 40). This patient's [facility] Lifetime Breast Cancer Risk is estimated at 2.7 %. This mammogram was interpreted with the aid of an FDA-approved computer-aided dectection system. Electronically Signed By: Samuel Umana MD 07/09/20 5330
== END ==
LOC: M WHC 13:23
PROVIDERS: ATTEND Advanced Practice Midwife
DX: Z12.31 Encounter for screening mammogram for malignant neoplasm of breast (principal); N64.4 Mastodynia; Z80.0 Family history of malignant neoplasm of digestive organs; Z86.018 Personal history of other benign neoplasm
CPT/HCPCS: 77066; G0279

== ENCOUNTER → 2020-07-09 | Outpatient (CLI) | payer MEDICARE, OTHER | LOC: M WHC 13:51 | PROVIDERS: ATTEND Advanced Practice Midwife | DX: Z53.9 Procedure and treatment not carried out, unspecified reason (principal); N64.4 Mastodynia ==